=== PATIENT | female | born 1975 | race African-American/Black ===

== ENCOUNTER → 2018-03-19 | Day surgery (SDC) | payer BC | LOC: BICULT 06:58 | PROVIDERS: ATTEND Radiology Diagnostic Radiology | PROC: 0HBT3ZX Excision of Right Breast, Percutaneous Approach, Diagnostic (ICD-10-PCS; principal; 2018-03-19) | DX: N60.21 Fibroadenosis of right breast (principal); N60.31 Fibrosclerosis of right breast | CPT/HCPCS: 19100; 76942; 88305 ==

== ENCOUNTER 2022-03-19 09:04 | Outpatient (CLI) | payer OTHER | END 2022-03-19 09:05 | disposition home or self-care (01) | LOC: BICMAMMO 09:04 | PROVIDERS: ATTEND Physician Assistant | DX: R92.8 Other abnormal and inconclusive findings on diagnostic imaging of breast (principal); N63.11 Unspecified lump in the right breast, upper outer quadrant | CPT/HCPCS: 77066; G0279 ==

== ENCOUNTER 2023-06-26 14:55 | Outpatient (CLI) | payer OTHER | END 2023-06-26 14:56 | disposition home or self-care (01) | LOC: BICMAMMO 14:55 | PROVIDERS: ATTEND Physician Assistant | DX: N63.11 Unspecified lump in the right breast, upper outer quadrant (principal) | CPT/HCPCS: 77066; G0279 ==

== ENCOUNTER 2023-07-26 08:57 | Outpatient (CLI) | payer OTHER ==
[2023-07-26 10:11] LABS: Anion Gap 13 mmol/L (10-20); BUN (Urea Nitrogen) 7 mg/dL (7.0-18.7); Calc. Creatinine Clearance 0 mL/min (70-130); Calcium 9.1 mg/dL (7.8-10.44); Carbon Dioxide 23 mmol/L (22-29); Chloride 105 mmol/L (98-107); Estimated GFR 76; Glucose 77 mg/dL (70-105); Potassium 4.2 mmol/L (3.5-5.1); Sodium 137 mmol/L (136-145)
[2023-07-26 10:12] LABS: Hemoglobin 13.1 g/dL (12.0-15.5); Mean Corpuscular HGB CONC 32.8 g/dL (32.0-36.0); Mean Corpuscular Hemoglobin 31.9 pg (27.0-33.0); Mean Corpuscular Volume 97.3 fl (81.6-98.3); Mean Platelet Volume 8.8 fl (7.4-10.4); Platelet Count 358 10x3/uL (150-450); RBC Distribution Width 14.7 % (11.5-14.5); Red Blood Cell (RBC) Count 4.11 10x6/uL (3.90-5.03); White Blood Cell (WBC) Count 6.9 10x3/uL (3.5-10.5)
== END 2023-07-26 08:58 | disposition home or self-care (01) ==
LOC: LABBT 08:57
PROVIDERS: ATTEND Specialist
DX: Z01.812 Encounter for preprocedural laboratory examination (principal); N63.10 Unspecified lump in the right breast, unspecified quadrant
CPT/HCPCS: 80048; 85027

== ENCOUNTER 2023-07-30 09:38 | Day surgery (SDC) | payer OTHER ==
[2023-07-26 09:46] VITALS: BMI 30.8
[2023-07-30] MEDS ORDERED: Ketorolac Tromethamine 30 MG/ML VIAL ONE (10:26)
[2023-07-30] MEDS ORDERED: CEFAZOLIN 2 GM VIAL ONE ×2 (10:27→16:02)
[2023-07-30] MEDS ORDERED: Acetaminophen 500 MG TAB ONE (10:27)
[2023-07-30] MEDS ORDERED: Sodium Chloride 0.9% 0 ML ONE (10:27)
[2023-07-30] MEDS ORDERED: Midazolam HCl 2 mg/2 ml Vial ONE (12:50)
[2023-07-30] MEDS ORDERED: EPINEPHrine 1 MG/ML VIAL ONE (15:48)
[2023-07-30] MEDS ORDERED: Bupivacaine 0.25% HCL 30 ML VIAL ONE (15:48)
[2023-07-30] MEDS ORDERED: fentaNYL PF 100 MCG/2 ML SYRINGE ONE ×2 (15:49→17:20)
[2023-07-30] MEDS ORDERED: Lidocaine 2% PF 5 ML VIAL ONE (15:49)
[2023-07-30] MEDS ORDERED: PROPOFOL 20 ML ONE (15:49)
[2023-07-30] MEDS ORDERED: Dexamethasone 4 mg/ml Vial ONE (15:50)
[2023-07-30] MEDS ORDERED: Lidocaine 1% PF 5 ML VIAL ONE ×2 (15:50→16:12)
[2023-07-30] MEDS ORDERED: Ondansetron PF 4 MG/2 ML Vial ONE ×2 (15:50→16:12)
[2023-07-30] MEDS ORDERED: Sodium Chloride 0.9% 100 ML ONE (16:02)
[2023-07-30] MEDS ORDERED: Dexamethasone 20 MG/5 ML VIAL ONE (16:12)
[2023-07-30] MEDS ORDERED: PROPOFOL 200 MG/20 ML VIAL ONE (16:12)
== END 2023-07-30 18:17 | disposition home or self-care (01) ==
LOC: SDC 09:38
PROVIDERS: ATTEND Specialist
PROC: 0HB5XZX Excision of Chest Skin, External Approach, Diagnostic (ICD-10-PCS; principal; 2023-07-30)
DX: N63.11 Unspecified lump in the right breast, upper outer quadrant (principal); N60.21 Fibroadenosis of right breast; F41.9 Anxiety disorder, unspecified; Z98.84 Bariatric surgery status; Z79.899 Other long term (current) drug therapy
CPT/HCPCS: 76098; 88307; 88341; 88342; J0171; J1100; J1885; J2001; J2250; J2405; J2704; J3490; S0020

== ENCOUNTER 2023-10-14 08:06 | Outpatient (CLI) | payer OTHER ==
[2023-10-14 09:13] LABS: #Basophils 0.1 10x3/uL (0.0-0.2); #Eosinphils 0.2 10x3/uL (0.0-0.5); #Monocytes 0.5 10x3/uL (0.0-1.1); #Neutrophils 4.5 10x3/uL (1.5-8.4); %Basophils 0.8 % (0.0-2.0); %Eosinophils 2.3 % (0.0-6.0); %Lymphocytes 30.8 % (18.0-47.0); %Monocytes 6.5 % (0.0-10.0); %Neutrophils 59.1 % (40.0-75.0); Hematocrit 38.5 % (34.9-44.5); Mean Corpuscular HGB CONC 33.8 g/dL (32.0-36.0); Mean Corpuscular Hemoglobin 33.6 pg (27.0-33.0); Mean Corpuscular Volume 99.5 fl (81.6-98.3); Platelet Count 430 10x3/uL (150-450); RBC Distribution Width 14.9 % (11.5-14.5); Red Blood Cell (RBC) Count 3.87 10x6/uL (3.90-5.03); White Blood Cell (WBC) Count 7.7 10x3/uL (3.5-10.5)
[2023-10-14 09:36] LABS: Anion Gap 13 mmol/L (10-20); BUN (Urea Nitrogen) 9 mg/dL (7.0-18.7); Calc. Creatinine Clearance 0 mL/min (70-130); Calcium 8.7 mg/dL (7.8-10.44); Carbon Dioxide 24 mmol/L (22-29); Chloride 107 mmol/L (98-107); Estimated GFR 84; Glucose 88 mg/dL (70-105); Potassium 4.5 mmol/L (3.5-5.1); Sodium 139 mmol/L (136-145)
== END 2023-10-14 08:07 | disposition home or self-care (01) ==
LOC: LABBT 08:06
PROVIDERS: ATTEND Specialist
DX: Z01.812 Encounter for preprocedural laboratory examination (principal); N63.10 Unspecified lump in the right breast, unspecified quadrant
CPT/HCPCS: 80048; 85025

== ENCOUNTER 2025-06-02 13:05 | Outpatient (CLI) | payer BC, OTHER | END 2025-06-02 13:06 | disposition home or self-care (01) | LOC: BICMAMMO 13:05 | PROVIDERS: ATTEND Family Medicine | DX: Z12.31 Encounter for screening mammogram for malignant neoplasm of breast (principal); Z80.3 Family history of malignant neoplasm of breast; Z91.89 Other specified personal risk factors, not elsewhere classified | CPT/HCPCS: 77063; 77067 ==